=== PATIENT | male | born 1965 | race American Indian/Alaskan Native ===

== ENCOUNTER 2016-05-28 23:28 | Emergency (ER) | payer MEDICAID ==
[2016-05-29] MEDS ORDERED: Sodium Chloride 0.9% 1,000 ML IV ONE (00:03)
[2016-05-29] MEDS ORDERED: Sodium Chloride 0.9% 1,000 ML ONE (00:23)
[2016-05-29 00:25] LABS: BASO # 0.1 K/uL (0.0-0.2); BASO % 0.5 % (0.0-2.0); EOS % 0.1 % (0.0-4.0); HEMATOCRIT 42.2 % (35.0-51.0); LYMPH # 1.5 K/uL (1.0-4.3); LYMPH % 13.5 % (20.0-40.0); MEAN CORPUSCULAR HEMOGLOBIN 25.9 pg (27.0-31.0); MEAN CORPUSCULAR HGB CONC 32.4 g/dL (33.0-37.0); MEAN PLATELET VOLUME 6.9 fL (7.2-11.7); MONO # 0.9 K/uL (0.0-0.8); MONO % 7.8 % (0.0-10.0); RED CELL DISTRIBUTION WIDTH 14.6 % (11.5-14.5); WHITE BLOOD COUNT 11.1 K/uL (4.8-10.8)
[2016-05-29 00:33] LABS: CHLORIDE 97 mmol/L (98-107); SODIUM 137 mmol/L (132-148)
[2016-05-29 00:36] LABS: ALB/GLOB RATIO 1.1 (1.0-2.1); ALKALINE PHOSPHATASE 75 U/L (38-126); ALT/SGPT 31 U/L (21-72); AST/SGOT 24 U/L (17-59); BILIRUBIN,TOTAL 1.1 mg/dL (0.2-1.3); BLOOD UREA NITROGEN 18 mg/dL (9-20); CARBON DIOXIDE 28 mmol/L (22-30); GFR AFRICAN-AMERICAN > 60; GLUCOSE,RANDOM 96 mg/dL (75-110); TOTAL PROTEIN 7.3 g/dL (6.3-8.3)
[2016-05-29 00:37] LABS: CALCIUM 8.8 mg/dl (8.6-10.4)
[2016-05-29 01:03] VITALS: O2SAT 97
--- NOTE | 2016-05-29 01:20 | C.PDOC ---
History Of Present Illness Patient presents to the emergency room with complaints of intermittent vomiting over the past 2 days. Patient is refusing to answer questions. reports that patient takes Percocet frequently for chronic right wist pain. According to nurse, patient took 15 Percocets today. Patient denies any diarrhea, fever, chest pain, shortness of breath, or any other complaints. Time Seen by Provider: 05/28/16 23:54 Chief Complaint (Nursing): GI Problem History Per: Patient, Family () History/Exam Limitations: no limitations Onset/Duration Of Symptoms: Days (2), Intermittent Episodes Current Symptoms Are (Timing): Still Present Severity: Mild Recent travel outside of the [place]: No Past Medical History Reviewed: Historical Data, Nursing Documentation, Vital Signs Vital Signs: Last Vital Signs Temp Pulse 90 05/29/16 03:29 Resp 20 05/29/16 03:29 BP 119/82 05/29/16 03:29 Pulse Ox 97 05/29/16 03:29 - Medical History PMH: No Chronic Diseases Surgical History: No Surg Hx Family History: States: Unknown Family Hx - Social History Hx Alcohol Use: Yes Hx Substance Use: Yes (percocet for pain) Review Of Systems Except As Marked, All Systems Reviewed And Found Negative. Constitutional: Negative for: Fever Gastrointestinal: Positive for: Vomiting. Negative for: Nausea, Diarrhea Musculoskeletal: Positive for: Other (Right wrist pain) Physical Exam - Physical Exam Appears: Non-toxic Skin: Normal Color, Warm, Dry Head: Atraumatic, Normacephalic Eye(s): bilateral: Abnormal Pupil (Pinpoint pupils) Neck: Normal ROM, Supple Cardiovascular: Rhythm Regular, No Murmur Respiratory: Normal Breath Sounds, No Rales, No Rhonchi, No Wheezing Gastrointestinal/Abdominal: Soft, No Tenderness Back: Normal Inspection Extremity: Normal ROM, No Tenderness Neurological/Psych: Oriented x3 ED Course And Treatment - Laboratory Results Result Diagrams: 05/29/16 00:22 05/29/16 00:22 O2 Sat by Pulse Oximetry: 97 Medical Decision Making Medical Decision Making: Plan: -- Pepcid & Zofran -- Labs Progress Notes: Labs unremarkable, abd continued soft no vomiting in the ED Plan dc home symptomatic meds, clinic F/U Disposition Counseled Patient/Family Regarding: Diagnosis, Need For Followup - Disposition Referrals: [facility] [Outside] Disposition: HOME/ ROUTINE Disposition Time: 03:38 Condition: GOOD Prescriptions: Famotidine [Pepcid] 1 tab PO BID #30 tab Ondansetron ODT [Zofran ODT] 1 odt PO BID PRN #6 odt PRN Reason: Nausea/Vomiting Instructions: Abdominal Pain (ED), Acute Nausea and Vomiting (ED) - Clinical Impression Clinical Impression: Abdominal pain, Vomiting - Scribe Statement The provider has reviewed the documentation as recorded by the Wilmeribivy Farrell All medical record entries made by the Derrick were at my direction and personally dictated by me. I have reviewed the chart and agree that the record accurately reflects my personal performance of the history, physical exam, medical decision making, and the department course for this patient. I have also personally directed, reviewed, and agree with the discharge instructions and disposition.
[2016-05-29 03:31] VITALS: BP 119/82; PULSE 90; RESP 20
[2016-05-29 03:44] LABS: RBC URINE 16 /hpf (0-3); URINE BILIRUBIN NEGATIVE (NEGATIVE); URINE BLOOD NEGATIVE (NEGATIVE); URINE COLOR Yellow (YELLOW); URINE GLUCOSE (UA) NORMAL (Normal); URINE HYALINE CAST >20 /lpf (0-2); URINE KETONE NEGATIVE (NEGATIVE); URINE LEUKOCYTE ESTERASE NEG Leu/uL (Negative); URINE PROTEIN 1+ mg/dL (NEGATIVE); URINE UROBILINOGEN NORMAL mg/dL (0.2-1.0); WBC URINE 2 /hpf (0-5)
== END 2016-05-29 04:06 | disposition home or self-care (01) ==
LOC: C.ER 23:28
DX: R11.10 Vomiting, unspecified (principal); R10.9 Unspecified abdominal pain

== ENCOUNTER 2016-06-27 17:48 | Emergency (ER) | payer MEDICAID ==
[2016-06-27 20:19] LABS: BASO % 0.5 % (0.0-2.0); EOS # 0.1 K/uL (0.0-0.7); EOS % 1.3 % (0.0-4.0); LYMPH % 26.2 % (20.0-40.0); MEAN CELL VOLUME 80.7 fL (80.0-94.0); MEAN CORPUSCULAR HEMOGLOBIN 26.3 pg (27.0-31.0); MEAN CORPUSCULAR HGB CONC 32.6 g/dL (33.0-37.0); MEAN PLATELET VOLUME 7.2 fL (7.2-11.7); MONO # 0.6 K/uL (0.0-0.8); MONO % 8.3 % (0.0-10.0); RED CELL DISTRIBUTION WIDTH 14.5 % (11.5-14.5); WHITE BLOOD COUNT 7.6 K/uL (4.8-10.8)
[2016-06-27 20:24] LABS: CHLORIDE 97 mmol/L (98-107); POTASSIUM 3.4 mmol/L (3.6-5.2); SODIUM 137 mmol/L (132-148)
[2016-06-27 20:26] LABS: BILIRUBIN,TOTAL 0.3 mg/dL (0.2-1.3); CARBON DIOXIDE 30 mmol/L (22-30); GFR AFRICAN-AMERICAN > 60
[2016-06-27 20:27] LABS: ALB/GLOB RATIO 1.3 (1.0-2.1); ALKALINE PHOSPHATASE 86 U/L (38-126); ALT/SGPT 21 U/L (21-72); AST/SGOT 20 U/L (17-59); CALCIUM 8.8 mg/dl (8.6-10.4); TOTAL PROTEIN 6.6 g/dL (6.3-8.3)
--- NOTE | 2016-06-27 20:36 | C.PDOC ---
History Of Present Illness 50 year old patient is brought to the ED by ambulance complaining of positionally reproducible chest discomfort. Patient also reports he was snorting heroin earlier today and is now paranoid. Patient denies any shortness of breath, palpitations, nausea, vomiting, numbness, weakness, or any other complaints at this time. Time Seen by Provider: 06/27/16 20:29 Chief Complaint (Nursing): Headache History Per: Patient History/Exam Limitations: no limitations Onset/Duration Of Symptoms: Mins (prior to arrival) Current Symptoms Are (Timing): Still Present Severity: Mild Pain Scale Rating Of: 3 Quality: "Pain" Preceeding Symptoms: None Recent travel outside of the [place]: No Additional History Per: EMS Past Medical History Reviewed: Historical Data, Nursing Documentation, Vital Signs Vital Signs: Last Vital Signs Temp 98.2 F 06/27/16 17:53 Pulse 96 H 06/27/16 17:53 Resp 20 06/27/16 17:53 BP 117/80 06/27/16 17:53 Pulse Ox 96 06/27/16 20:35 Family History: States: Unknown Family Hx - Social History Hx Alcohol Use: No Hx Substance Use: Yes (percocet for pain) Review Of Systems Except As Marked, All Systems Reviewed And Found Negative. Cardiovascular: Positive for: Chest Pain. Negative for: Palpitations Respiratory: Negative for: Shortness of Breath Gastrointestinal: Negative for: Nausea, Vomiting Neurological: Negative for: Weakness, Numbness Psych: Positive for: Other (paranoid) Physical Exam - Physical Exam Appears: Non-toxic, No Acute Distress Skin: Warm, Dry Head: Atraumatic, Normacephalic Eye(s): bilateral: PERRL, EOMI Neck: Normal ROM, Supple Chest: Symmetrical, Tenderness (digitally and positionally reproducible left parasternal discomfort) Cardiovascular: Rhythm Regular Respiratory: Normal Breath Sounds, No Accessory Muscle Use, No Rales, No Rhonchi , No Wheezing Gastrointestinal/Abdominal: Soft, No Tenderness Back: Normal Inspection, No CVA Tenderness Extremity: Normal ROM Neurological/Psych: Oriented x3, Normal Speech, Normal Cognition Gait: Steady ED Course And Treatment - Laboratory Results Result Diagrams: 06/27/16 20:42 06/27/16 20:12 ECG: Interpreted By Me ECG Rhythm: Sinus Rhythm ECG Interpretation: Normal Rate From EC O2 Sat by Pulse Oximetry: 96 (RA) Pulse Ox Interpretation: Normal Progress Note: Plan: -EKG. -Labs. -Motrin Medical Decision Making Medical Decision Making: snorting heroine and anxiety related to same, seeking withdrawal meds- refer to outpatient detox L parasternal chest discomfort, positional and digital reproduc- normal ekg, c/ w costochondritis Disposition Doctor Will See Patient In The: Office Counseled Patient/Family Regarding: Studies Performed, Diagnosis - Disposition Referrals: [facility] [Outside] [facility] [Outside] Disposition: HOME/ ROUTINE Disposition Time: 20:35 Condition: GOOD Additional Instructions: motrin 400-600 mg every 6hours as needed for left chest discomfort no heavy lifting for 1 week Seek outpatient detox programs- lists given Instructions: Costochondritis (ED), Narcotic Abuse (ED) - Clinical Impression Clinical Impression: Chest wall discomfort, Anxiety, Heroin abuse - Scribe Statement The provider has reviewed the documentation as recorded by the Scribe Doretha Jolley Provider Attestation: All medical record entries made by the Scribe were at my direction and personally dictated by me. I have reviewed the chart and agree that the record accurately reflects my personal performance of the history, physical exam, medical decision making, and the department course for this patient. I have also personally directed, reviewed, and agree with the discharge instructions and disposition.
[2016-06-27 20:42] LABS: BLOOD UREA NITROGEN 17 mg/dL (9-20); GLUCOSE,RANDOM 104 mg/dL (75-110)
[2016-06-27 21:30] VITALS: RESP 16
[2016-06-27 21:32] VITALS: BP 122/78; PULSE 83; TEMP 98; O2SAT 98
--- NOTE | 2016-06-28 18:56 | CARD ---
APPROVED REPORT EKG Measurement Heart [id number] <Conclusion> Normal sinus rhythm Normal ECG
== END 2016-06-27 21:42 | disposition home or self-care (01) ==
LOC: C.ER 17:48
DX: F11.188 Opioid abuse with other opioid-induced disorder (principal); R07.89 Other chest pain

== ENCOUNTER 2016-11-10 20:03 | Inpatient (IN) | payer MEDICAID ==
--- NOTE | 2016-11-10 20:30 | C.PDOC ---
History Of Present Illness 51 year old male who presents to the ER as a prescreen for heroin detox, last use was tonight. Patient states he feels "withdrawal symptoms coming on", denies no other drug use. Time Seen by Provider: 11/10/16 20:11 Chief Complaint (Nursing): Substance Abuse History Per: Patient History/Exam Limitations: no limitations Onset/Duration Of Symptoms: Days Current Symptoms Are (Timing): Still Present Suicide/Self Injury Attempted (Context): None Modifying Factor(s): Narcotics Associated Symptoms: denies: Depression, Suicidal Thoughts, Suicidal Plan Involuntary Hold By: None Recent travel outside of the [place]: No Past Medical History Reviewed: Historical Data, Nursing Documentation, Vital Signs Vital Signs: Last Vital Signs Temp 98.6 F 11/10/16 20:18 Pulse 92 H 11/10/16 20:18 Resp 18 11/10/16 20:18 BP 131/84 11/10/16 21:01 Pulse Ox 100 11/10/16 21:08 - Medical History PMH: HTN Surgical History: No Surg Hx Family History: States: Unknown Family Hx - Social History Hx Alcohol Use: No Hx Substance Use: Yes (percocet for pain) - Immunization History Hx Tetanus Toxoid Vaccination: No Hx Influenza Vaccination: No Hx Pneumococcal Vaccination: No Review Of Systems Constitutional: Negative for: Fever, Chills Gastrointestinal: Negative for: Nausea, Vomiting, Diarrhea Physical Exam - Physical Exam Appears: Non-toxic, No Acute Distress Skin: Normal Color, Warm, Dry Head: Atraumatic, Normacephalic Oral Mucosa: Moist Chest: Symmetrical, No Tenderness Cardiovascular: Rhythm Regular, No Murmur Respiratory: Other (Speaking in complete sentences, no respiratory distress) Gastrointestinal/Abdominal: Soft, No Tenderness Neurological/Psych: Oriented x3, Normal Speech, Normal Cognition ED Course And Treatment - Laboratory Results Result Diagrams: 11/10/16 20:33 11/10/16 20:33 O2 Sat by Pulse Oximetry: 100 (Room air) Pulse Ox Interpretation: Normal Reevaluation Time: 21:08 Reassessment Condition: Improved (MED CLEAR FOR DETOX.) - Physician Consult Information Time Consulting Physician Contacted: 21:08 Outcome Of Conversation: D/W CRISIS SANDRA Medical Decision Making Medical Decision Making: Plan: * Blood work * Urinalysis * Catapres * Motrin * Zofran Disposition - Disposition Referrals: Non [facility] Provider, [Primary Care Provider] - Disposition: HOSPITALIZED Disposition Time: 21:29 Condition: STABLE Forms: [facility] ([place]) - POA Present On Arrival: None - Clinical Impression Clinical Impression: Opiate use, Opiate withdrawal - Scribe Statement The provider has reviewed the documentation as recorded by the Scribe Emir Gomez All medical record entries made by the Scribe were at my direction and personally dictated by me. I have reviewed the chart and agree that the record accurately reflects my personal performance of the history, physical exam, medical decision making, and the department course for this patient. I have also personally directed, reviewed, and agree with the discharge instructions and disposition. Decision To Admit - Pt Status Changed To: Hospital Disposition Of: Inpatient - Admit Certification Admit to Inpatient:: After my assessment, the patient will require hospitalization for at least two midnights. This is because of the severity of symptoms shown, intensity of services needed, and/or the medical risk in this patient being treated as an outpatient. - InPatient: Physician Admission Certification: I certify that this patient requires 2 or more midnights of care for the following reason:: see note - . Bed Request Type: Detox Admitting Physician: Jordan Nicole Patient Diagnosis: Opiate use, Opiate withdrawal
[2016-11-10 20:36] LABS: BASO % 0.6 % (0.0-2.0); EOS # 0.1 K/uL (0.0-0.7); EOS % 1.1 % (0.0-4.0); HEMATOCRIT 43.4 % (35.0-51.0); LYMPH % 27.7 % (20.0-40.0); MEAN CELL VOLUME 80.9 fL (80.0-94.0); MEAN CORPUSCULAR HEMOGLOBIN 26.7 pg (27.0-31.0); MONO # 0.7 K/uL (0.0-0.8); MONO % 10.2 % (0.0-10.0); RED CELL DISTRIBUTION WIDTH 14.6 % (11.5-14.5); WHITE BLOOD COUNT 7.3 K/uL (4.8-10.8)
[2016-11-10 20:46] LABS: CHLORIDE 100 mmol/L (98-107); POTASSIUM 3.8 mmol/L (3.6-5.2); SODIUM 143 mmol/L (132-148)
[2016-11-10 20:48] LABS: BILIRUBIN,TOTAL 0.5 mg/dL (0.2-1.3); CARBON DIOXIDE 34 mmol/L (22-30); GFR AFRICAN-AMERICAN > 60
[2016-11-10 20:49] LABS: ALB/GLOB RATIO 1.4 (1.0-2.1); ALCOHOL SERUM < 10 mg/dl (0-10); ALKALINE PHOSPHATASE 109 U/L (38-126); ALT/SGPT 35 U/L (21-72); AST/SGOT 22 U/L (17-59); BLOOD UREA NITROGEN 17 mg/dL (9-20); GLUCOSE,RANDOM 102 mg/dL (75-110); TOTAL PROTEIN 7.4 g/dL (6.3-8.3)
[2016-11-10 20:55] LABS: URINE BACTERIA RARE (<OCC); URINE BILIRUBIN NEGATIVE (NEGATIVE); URINE BLOOD NEGATIVE (NEGATIVE); URINE COLOR Yellow (YELLOW); URINE GLUCOSE (UA) NORMAL (Normal); URINE KETONE TRACE mg/dL (NEGATIVE); URINE LEUKOCYTE ESTERASE NEG Leu/uL (Negative); URINE PROTEIN NEGATIVE (NEGATIVE); WBC URINE 1 /hpf (0-5)
--- NOTE | 2016-11-10 21:42 | PCM.BM ---
<Ingrid Ramirez - Last Filed: 11/10/16 22:05> Treatment Plan Problems - Problems identified on initial assessmt Potential for Opiate withdrawal Date Initiated: 11/10/16 Time Initiated: 21:40 Assessment reference: NA Status: Active Priority: 1 Treatment assets and liabiliti Patient Assests: cooperative, ADL independent, negotiates basic needs, cognitively intact Patient Liabilities: substance abuse, medical problems - Milieu Protocol Maintain good personal hygiene: daily Encourage regular showers, daily Remind patient to perform daily oral care Conduct patient checks and document Observation sheet: Q15 minutes Maintain personal safety: every shift Educate patient to report safety concerns to staff, every shift Monitor environment for contraband/sharps Medication safety: Monitor for expected outcome, potential side effects: every shift, Assess barriers to learning: every shift, Assess readiness for medication education: every shift <Anna Valente - Last Filed: 11/11/16 11:51> Family Contact Family involvement: Famliy/SO not involved Family contact: Patient declines to allow family contact at present - Goals for Treatment Patient goals for treatment: Complete detox and discuss outpatient treatment options. Discharge/Continuing Care - Education Needs Education Needs: Patient Medication, Patient Diagnosis/Disease Process, Patient Coping Skills, Patient Anger Management skills, Patient Placement options, Patient Community resources - Discharge Discharge Criteria: Free of agitation, Normal sleep pattern, No longer exhibiting s/s of withdrawal, Reduction of target symptoms Discharge to:: With Family - Treatment Team Participation Patient/Family/SO Statement: 11/11/16 11:50 "I wanna go home to my but I'll listen to my options for outpatient counseling". Discussed with Family/SO: No Was Patient/Family/SO present at Treatment Team Meeting: Yes
[2016-11-11] MEDS ORDERED: Albuterol HFA 90 mcg/actuation (8 g) INH PRN (06:53)
[2016-11-11] MEDS ORDERED: Buprenorphine Hydrochloride 2 mg SL ONE ×3 (10:06→18:00)
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
[2016-11-11] MEDS ORDERED: Pantoprazole 20 mg EC Tab PO STA (19:33)
[2016-11-11] MEDS: Aluminum Hydroxide/Magnesium Hydroxide Susp (30 mL) PO PRN (19:38)
[2016-11-12] MEDS: Pantoprazole 20 mg EC Tab PO SCH (10:20)
[2016-11-12] MEDS: Buprenorphine Hydrochloride 2 mg SL SCH (10:21)
[2016-11-12] MEDS: Aluminum Hydroxide/Magnesium Hydroxide Susp (30 mL) PO PRN (10:21)
[2016-11-13] MEDS: Buprenorphine Hydrochloride 2 mg SL SCH (09:14)
[2016-11-13] MEDS: Pantoprazole 20 mg EC Tab PO SCH (09:14)
[2016-11-13] MEDS: Aluminum Hydroxide/Magnesium Hydroxide Susp (30 mL) PO PRN (23:51)
[2016-11-14] MEDS: Pantoprazole 20 mg EC Tab PO SCH (09:50)
[2016-11-14] MEDS: Buprenorphine Hydrochloride 2 mg SL SCH (09:50)
[2016-11-14 10:13] VITALS: O2SAT 99
[2016-11-14 12:21] VITALS: BP 143/89; PULSE 85; RESP 18; TEMP 98
--- NOTE | 2016-11-14 18:10 | PCM.PYCHPN ---
Psychiatric Progress Note - Psychiatric Progress Note Patient seen today, length of contact: 15 min Patient Chief Complaint: i'm anxious i miis my family Problems Identified/Issues Discussed: paws medication Medical Problems: nothing acute Diagnostic Results: reviewed DSM 5 Symptoms Update: anxiety insomnia Medication Change: Yes (subutex taper) Medical Record Reviewed: Yes Mental Status Examination - Cognitive Function Orientation: Person, Place, Time Memory: Intact Attention: WNL Concentration: WNL Association: WNL Fund of Knowledge: WNL - Mood Mood: Anxious - Affect Affect: Constricted - Speech Speech: Appropriate - Formal Thought Process Formal Thought Process: No Impairment - Suicidal Ideation Suicidal Ideation: No - Homicidal Ideation Homicidal Ideation: No Goal/Treatment Plan - Goal/Treatment Plan Need for Continued Stay: Discharge may exacerbated symptoms Progress Toward Problem(s) and Goals/Treatment Plan: opiate withdrawal symptom improving opiate use cbt mi group therapy Estimated Date of D/C: 11/15/16 - Smoking Cessation Smoking Cessation Initiated: No
--- NOTE | 2016-11-14 18:21 | PCM.PYCHPN ---
Psychiatric Progress Note - Psychiatric Progress Note Patient seen today, length of contact: 15 min Patient Chief Complaint: i want to go home Problems Identified/Issues Discussed: ridks and bednefits of completing the detox Medical Problems: nothing acute Diagnostic Results: reviewed Medication Change: Yes (subutex taper) Medical Record Reviewed: Yes Mental Status Examination - Cognitive Function Orientation: Person, Place, Time Memory: Intact Attention: WNL Concentration: WNL Association: WNL Fund of Knowledge: WNL - Mood Mood: Anxious - Affect Affect: Constricted - Speech Speech: Appropriate - Formal Thought Process Formal Thought Process: No Impairment - Suicidal Ideation Suicidal Ideation: No - Homicidal Ideation Homicidal Ideation: No Goal/Treatment Plan - Goal/Treatment Plan Need for Continued Stay: Discharge may exacerbated symptoms Progress Toward Problem(s) and Goals/Treatment Plan: opiate withdrawal symptoms- Estimated Date of D/C: 11/15/16 - Smoking Cessation Smoking Cessation Initiated: No
--- NOTE | 2016-11-14 18:26 | PCM.PYCHPN ---
Psychiatric Progress Note - Psychiatric Progress Note Patient seen today, length of contact: 15 min Patient Chief Complaint: i miss my Problems Identified/Issues Discussed: PAWS Medical Problems: nothing acute Diagnostic Results: reviewed Medication Change: Yes (subutex taper) Medical Record Reviewed: Yes Mental Status Examination - Cognitive Function Orientation: Person, Time Memory: Intact Attention: WNL Fund of Knowledge: WNL - Mood Mood: Anxious - Affect Affect: Constricted - Speech Speech: Appropriate - Formal Thought Process Formal Thought Process: No Impairment - Suicidal Ideation Suicidal Ideation: No - Homicidal Ideation Homicidal Ideation: No Goal/Treatment Plan - Goal/Treatment Plan Need for Continued Stay: Discharge may exacerbated symptoms Progress Toward Problem(s) and Goals/Treatment Plan: opiate withdrawql symptoms stomach cramps opiate use disorderMI CBT supportive psychotherapy [facility] Estimated Date of D/C: 11/15/16 - Smoking Cessation Smoking Cessation Initiated: No
== END 2016-11-14 12:15 | disposition home or self-care (01) | DRG 745 ==
LOC: C.ER 20:03 → SUPCPDRO 20:03 → C.7D 21:29
PROVIDERS: ADMIT Psychiatry & Neurology Psychiatry; ATTEND Psychiatry & Neurology Psychiatry
PROC: HZ52ZZZ Individual Psychotherapy for Substance Abuse Treatment, Cognitive-Behavioral (ICD-10-PCS; principal; 2016-11-10)
PROC: HZ59ZZZ Individual Psychotherapy for Substance Abuse Treatment, Supportive (ICD-10-PCS; 2016-11-10)
PROC: HZ2ZZZZ Detoxification Services for Substance Abuse Treatment (ICD-10-PCS; 2016-11-10)
DX: F11.23 Opioid dependence with withdrawal (principal); I10 Essential (primary) hypertension; F41.9 Anxiety disorder, unspecified; F51.05 Insomnia due to other mental disorder